=== PATIENT | female | born 1975 | race Caucasian/White ===

== ENCOUNTER 2024-09-08 20:07 | Emergency (ER) | payer OTHER, SELFPAY ==
--- NOTE | ~2024-09-08 | XR_ITS ---
CLINICAL HISTORY: trauma 3 view left hand Comparison: None provided Findings: Bones intact. No dislocations. No significant loss of joint space or osteophytes. No erosions. No radiopaque foreign body. IMPRESSION: Mild 2nd digit soft tissue swelling. No soft tissue gas or fracture. This document has been electronically signed by: Liz Schmidt MD on 09/08/2024 21:34:02
[2024-09-08 20:28] VITALS: BP 133/80; PULSE 83; RESP 16; TEMP 36; O2SAT 96; BMI 29.6
--- NOTE | 2024-09-08 20:48 | ED.GENADULT ---
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 Patient has lacerations to left hand and L index finger. She did wash the wound MD complaint: L hand dog bite Onset (ago): minute(s) ([employer]) Location: left and upper extremity Radiation: non-radiation Severity: mild Quality: aching Pain Consistency: constant Relieving factors: immobilization Exacerbating factors: movement Associated symptoms: denies other symptoms Treatments prior to arrival: other Related Data Previous Rx's ?Medication ?Instructions ?Recorded amoxicillin 875 mg-potassium 1 tab PO BID #9 tabs 09/08/24 clavulanate 125 mg tablet Allergies Allergy/AdvReac Type Severity Reaction Status Date / Time No Known Allergies Allergy Verified 09/08/24 20:35 Review of Systems Review of Systems: Constitutional : No Fever, No Chills, Cardiovascular : No Chest Pain, No SOB Respiratory : No Dyspnea Gastrointestinal : No abdominal pain Musculoskeletal : No Joint Swelling Skin : No rash, positive skin laceration Neuro : No Weakness, No Numbness Psych : No SI/HI all other systems reviewed and are negative [facility] Past Medical History Attestation statement: The following information was validated with the patient. Source: old records reviewed Medical History (Updated 09/08/24 @ 23:17 by Janae Parker DO) HTN (hypertension) Social History Social History Advance Directives: No Advance Directives Information Provided: No Do you have a plan to hurt others: No Plan Physical Exam ED Vital Signs: Vital Signs - 24 hr 09/08/24 20:28 09/08/24 23:02 Temperature 96.8 F 96.8 F Pulse Rate 83 83 Respiratory Rate 16 16 Blood Pressure 133/80 133/80 Pulse Oximetry 96 96 Oxygen Delivery Method Room Air Room Air BMI result Body Mass Index 29.6 Appearance: Alert. Oriented X3. No acute distress. Eyes: Pupils equal, round and reactive to light. ENT: Pharynx normal. Neck: Normal inspection. Neck supple. CVS: Pulses normal. Respiratory: No respiratory distress. Abdomen: Soft and nontender. Skin: Skin warm and dry. Normal skin color. Extremities: No lower extremity edema. L hand superficial puncture on dorsum webspace, L index finger lateral aspect 2cm avulsion but no bone exposed distal NV intact and normal ext and flexion Neuro: Oriented X 3. No motor deficit. No sensory deficit. CN2-12 intact Course Course Course Narrative: RME, this is a rapid medical exam performed by Justin Dumont please refer to primary provider for complete H&P- 49-year-old female presents for evaluation of a dog bite to her left hand. Patient works as a [employer]. The dog that bit her is the patient of hers in his up-to-date on rabies vaccinations. The patient is up-to-date on tetanus. Plan for x-ray and the patient will likely require cleaning of her wounds. There was no active bleeding Medications Administered Discontinued Medications Generic Name Dose Route Start Last Admin Trade Name Freq PRN Reason Stop Dose Admin Amoxicillin/Clavulanate Potassium 875 mg 09/08/24 22:16 09/08/24 22:44 Amoxicillin/Potassium Clav 875 Mg Tablet PO 09/08/24 22:17 875 mg ONCE ONE Administration Lidocaine HCl 5 ml 09/08/24 22:12 09/08/24 22:44 Lidocaine Hcl 1 % Mpf 5 Ml Vial SUBCUT 09/08/24 22:13 5 ml ONCE ONE Administration Procedures Laceration Laceration 1: Site: other (index finger) Side (If applicable): left Size (cm): 2 Description: flap Depth: simple, single layer Local Anesthetic: lidocaine 1% Amount of anesthesia used (mL): 2 Pre-repair: wound explored, irrigated extensively and deep structures intact Skin layer closed with: nylon Size (cm): 6-0 Number of sutures: 3 Technique: simple, interrupted Medical Decision Making Medical Decision Making MDM Narrative: 49 yo female with PMH of HTN who was bit by a dog at work - all vaccines UTD with dog and patient. She is NV Intact and normal extensor/flexor function. Will obtain xray, start on augmentin, loosely close with infection precaution Differential Diagnosis Differential Diagnoses: The differential diagnosis associated with the presentation includes laceration, dog bite Independent Interpretation I performed an independent interpretation of an: Plain X-Ray (no fx) Radiology Impression Discussion of test interpretation with radiology: I have reviewed the radiologist's reading. External Record Review External record reviewed: Outpatient record Prescription Management I considered prescription management with: Antibiotic Discharge Plan Discharge Clinical Impression: Dog bite, Finger laceration Patient Disposition: Home, Self-Care Instructions: Animal Bite (ED), Finger Laceration (ED) Additional Instructions: xray normal return for swelling, redness, yellow drainage, fevers, signs of infection keep clean and dry sutures out in 7 days no swimming but shower is okay you should not wash the dishes Prescriptions: New amoxicillin-pot clavulanate 875-125 mg tablet 1 tab PO BID Qty: 9 0RF Stand Alone Forms: Work/School Release Interventions: ED Discharge Assessment Last Done: 09/08/24 23:02 Discharge Date/Time: 09/08/24 23:03 Print Language: Indonesian
--- OUTSIDE RECORDS SUMMARY | 2024-09-08 22:09 | XMS_ITS | Encounter Summary ---
Author Organization [facility] Address [address] [place] [address] Care Team Providers Care Certified Phlebotomy Technician Name Role Phone Monique Mackey MD Primary Care Provider [phone] Holly James MD Primary Care Provider Encounter Details Date Type Department Care Team (Late Contact Info) Description 04/07/2013 [facility] Neurology [address] [phone] Yury Cortes MD [address] [place] [address] Social History Tobacco Use Types Packs/Day Years Used Date Smoking Tobacco: Every Day Cigarettes 0.5 15 Comments:Wants to quit, has been trying to quit Alcohol Use Standard Drinks/Week Comments Yes 0 (1 standard drink = 0.6 oz pur e alcohol) rare Comments No Sex and Gender Information Value Date Recorded Sex Assigned at Not on file Legal Sex Female 8:22 PM EDT Gender Identity Not on file Sexual Orientation Not on file documented as of this encounter Plan of Treatment Upcoming Encounters Date Type Department Care Team (Late Contact Info) Description 08/12/2025 2:30 PM EDT Office Visit [facility] [address] [place] [phone] Yury Cortes MD [address] [place] [id number] Return in about 1 year (around 08/06/2025). documented as of this encounter Visit Diagnoses Not on filedocumented in this encounter Care Teams Certified Phlebotomy Technician Relationship Specialty Start Date End Date Monique Mackey MD PCP - General Family Medicine 07/01/12 09/17/17 Holly James MD [facility] [address] [place] [id number] PCP - General Family Medicine 09/18/17 documented as of this encounter
[2024-09-08] MEDS: Amoxicillin/Potassium Clav 875 MG TABLET PO (22:44)
[2024-09-08] MEDS: Lidocaine HCl 1 % MPF 5 ML VIAL SUBCUT (22:44)
[2024-09-08 23:02] VITALS: BP 133/80; PULSE 83; RESP 16; TEMP 36; O2SAT 96
== END 2024-09-08 23:03 | disposition home or self-care (01) ==
PROVIDERS: Emergency Provider Emergency Medicine; PCP Family Medicine
DX: S61.452A Open bite of left hand, initial encounter (principal); S61.211A Laceration without foreign body of left index finger without damage to nail, initial encounter; W54.0XXA Bitten by dog, initial encounter; Y93.89 Activity, other specified; Y92.238 Other place in hospital as the place of occurrence of the external cause; Y99.0 Civilian activity done for income or pay
CPT/HCPCS: 12001; 73130; 99282; 99284; J2003

== ENCOUNTER → 2024-09-08 20:49 | Outpatient (BNV) | payer OTHER, SELFPAY | PROVIDERS: Emergency Provider Emergency Medicine; Visit Provider Radiology Diagnostic Radiology | DX: M79.642 Pain in left hand (principal) | CPT/HCPCS: 73130 ==